=== PATIENT | male | born 1985 | race Two or more races ===

== ENCOUNTER 2022-10-24 16:26 | Emergency (ER) | payer OTHER ==
[~2022-10-24] VITALS: Ht 180.3 cm; Wt 106.4 kg
[2022-10-24 16:29] VITALS: BP 115/55; PULSE 88; RESP 16; TEMP 98.2
[2022-10-24] MEDS ORDERED: PERTUSS(ACELL),DIPH,TET VAC/PF 0.5 ML SYRINGE IM. ONE (17:15)
[2022-10-24] MEDS ORDERED: KETOROLAC TROMETHAMINE 30 MG/ML VIAL IM ONE (17:15)
== END 2022-10-24 20:42 | disposition home or self-care (01) ==
LOC: EMS 16:27
DX: M25.512 Pain in left shoulder (principal); F17.210 Nicotine dependence, cigarettes, uncomplicated; F12.90 Cannabis use, unspecified, uncomplicated
CPT/HCPCS: 99284; 73030; 90715; 90471; 96372; J1885

== ENCOUNTER 2023-03-14 18:34 | Emergency (ER) | payer MEDICAID, OTHER ==
[~2023-03-14] VITALS: Ht 180.3 cm; Wt 106.8 kg
[2023-03-14 19:49] VITALS: TEMP 97.9
[2023-03-14 20:43] LABS: APPEARANCE,URINE CLEAR (CLEAR); BILIRUBIN,URINE NEGATIVE (NEGATIVE); COLOR,URINE YELLOW (YELLOW); GLUCOSE, URINE (UA) NEGATIVE (NEGATIVE); KETONES,URINE NEGATIVE (NEGATIVE); LEUKOCYTE ESTERASE ,URINE TRACE (NEGATIVE); NITRATE,URINE NEGATIVE (NEGATIVE); OCCULT BLOOD,URINE TRACE (NEGATIVE); PROTEIN,URINE 30-70 mg/dL (NEGATIVE); SPECIFIC GRAVITIY, URINE 1.038 (1.003-1.030); UROBILINOGEN,URINE <=1.0 mg/dL (<=1.0)
[2023-03-14 21:06] LABS: BACTERIA,URINE None Seen /HPF (None Seen); MUCUS,URINE Moderate LPF (None Seen); RBC,URINE 0-2 /HPF (0-2); SQUAMOUS EPITHELIAL CELL,UR Few /LPF (None Seen); WBC,URINE 0-2 /HPF (0-5)
[2023-03-14] MEDS ORDERED: LIDOCAINE 5% TRANSDERMAL PATCH TD ONE (22:45)
[2023-03-14] MEDS ORDERED: TraMADol HCL 50 MG TABLET PO ONE (22:45)
[2023-03-14] MEDS ORDERED: KETOROLAC TROMETHAMINE 30 MG/ML VIAL IM ONE (22:45)
[2023-03-15 00:01] VITALS: BP 138/76; PULSE 60; RESP 16
[2023-03-15] MEDS ORDERED: LIDO700A15 TP (00:02)
[2023-03-15] MEDS ORDERED: CYCL-448 PO (00:02)
== END 2023-03-15 00:46 | disposition home or self-care (01) ==
LOC: EMS 18:44
DX: M54.9 Dorsalgia, unspecified (principal); F17.210 Nicotine dependence, cigarettes, uncomplicated; F12.90 Cannabis use, unspecified, uncomplicated; Z98.890 Other specified postprocedural states
CPT/HCPCS: 99285; 81001; 72072; 93005; 96372; J1885